=== PATIENT | female | born 1940 | race Caucasian/White ===

== ENCOUNTER → 2016-10-07 | Outpatient (CLI) | payer OTHER | LOC: FIMAGING 12:35 | PROVIDERS: ATTEND Nurse Practitioner Family | DX: M43.16 Spondylolisthesis, lumbar region (principal); M12.88 Other specific arthropathies, not elsewhere classified, other specified site; Z98.1 Arthrodesis status ==

== ENCOUNTER 2018-05-03 10:39 | Emergency (ER) | payer OTHER ==
[2018-05-03 10:50] VITALS: BP 142/105
--- NOTE | 2018-05-03 11:05 | EDPHY ---
H & P Stated Complaint: Fall either getting into or out of bed this AM. Lt foot pain Time Seen by Provider: 05/03/18 10:44 HPI/ROS: Chief Complaint: Foot pain status post fall HPI: 79-year-old woman was either getting in or out of bed this morning using a step stool when she slipped and fell. heard a Bang. He found the patient on the floor. She is complaining of left foot pain. She denies hitting her head. No loss of consciousness. No headache. She states she slipped on the stool. She was unable to weightbear secondary to pain. No hip pain. No chest pain. No abdominal pain. No extremity injury. ROS: 10 systems were reviewed and were negative except those elements noted in the HPI. PMH: Alzheimer's dementia Social History: No smoking, no alcohol, no recreational drug use Family History: non-contributory Physical Exam: Gen: Awake, Alert, No Distress HEENT: Nose: no rhinorrhea Eyes: PERRLA, EOMI Mouth: Moist mucosa Neck: Supple, no JVD Chest: nontender, lungs clear to auscultation Heart: S1, S2 normal, no murmur Abd: Soft, non-tender, no guarding Back: no CVA tenderness, no midline tenderness Ext: no edema, left hip is nontender, full range of motion without pain, left knee is nontender, full range of motion of pain, left ankle is nontender, full range of motion without pain, she has some left midfoot tenderness without deformity or edema. Sensations intact. Normal capillary refill. 2+ dorsalis pedis pulses. Skin: no rash Neuro: CN II-XII intact, Sensation grossly intact, Strength 5/5 in bilateral upper and lower extremities - Personal History Current Tetanus/Diphtheria Vaccine: Unsure Current Tetanus Diphtheria and Acellular Pertussis (TDAP): Unsure - Medical/Surgical History Other PMH: Alheimers - Social History Smoking Status: Never smoked Constitutional: Initial Vital Signs Temperature (C) 36.4 C 05/03/18 10:46 Heart Rate 72 05/03/18 10:46 Respiratory Rate 16 05/03/18 10:46 Blood Pressure 142/105 H 05/03/18 10:46 O2 Sat (%) 96 05/03/18 10:46 O2 Delivery Mode Room Air Allergies/Adverse Reactions: Penicillins Allergy (Verified 05/03/18 10:54) Sulfa (Sulfonamide Antibiotics) Allergy (Verified 05/03/18 10:54) Medical Decision Making - Diagnostics Imaging Results: Imaging Impressions Foot X-Ray 05/03/18 10:53 Impression: Oblique mildly displaced 5th metatarsal fracture. ED Course/Re-evaluation: Foot fracture noted on x-ray. Patient has been placed in an orthopedic boot. I have discussed with Dr. Green, orthopedist. He will be able to see the patient in his office this afternoon. We go straight there and does not need appointment. Departure - Departure Disposition: Home, Routine, Self-Care Clinical Impression: Foot fracture Condition: Good Instructions: Foot Fracture in Adults (ED) Additional Instructions: Go directly to Dr Green's office. Referrals: Jus Green MD [Medical Doctor] - As per Instructions
== END 2018-05-03 13:06 | disposition home or self-care (01) ==
LOC: MERGE 10:39 → EDBD 10:39
DX: S92.352A Displaced fracture of fifth metatarsal bone, left foot, initial encounter for closed fracture (principal); W06.XXXA Fall from bed, initial encounter; Y92.013 Bedroom of single-family (private) house as the place of occurrence of the external cause; Y99.8 Other external cause status; G30.9 Alzheimer's disease, unspecified; F02.80 Dementia in other diseases classified elsewhere, unspecified severity, without behavioral disturbance, psychotic disturbance, mood disturbance, and anxiety

== ENCOUNTER 2018-08-18 14:55 | Emergency (ER) | payer OTHER ==
--- NOTE | 2018-08-18 15:27 | EDPHY ---
H & P Time Seen by Provider: 08/18/18 15:17 HPI/ROS: CHIEF COMPLAINT: Confusion HISTORY OF PRESENT ILLNESS: Patient is a 72-year-old female who was wandering on the street and knocked on a stranger's door. She seemed confused and so the stranger called 911. The patient denies having any complaints of pain or injury or illness. She cannot tell us her name or what year or what day it is. She does not appear to have any focal weakness. She is afebrile and has stable vital signs. Police have contacted the 2 nursing homes in the area where she was found and neither of them know of a missing patient. She was carrying a book with her that is a family photo alum. Police are trying to contact the family that it belongs to. She told the police that her name was Evelyn. She told me that her name was Manisha. Severity: Minimal Modifying factors: None REVIEW OF SYSTEMS: Unable to obtain secondary to condition EXAM: GENERAL: Well-appearing, well-nourished and in no acute distress. HEAD: Atraumatic, normocephalic. EYES: Pupils equal round and reactive to light, extraocular movements intact, sclera anicteric, conjunctiva are normal. ENT: TMs normal, nares patent, oropharynx clear without exudates. Moist mucous membranes. NECK: Normal range of motion, supple without lymphadenopathy or JVD. Brownish discoloration/dirt to posterior neck LUNGS: Breath sounds clear to auscultation bilaterally and equal. No wheezes rales or rhonchi. HEART: Regular rate and rhythm without murmurs, rubs or gallops. ABDOMEN: Soft, nontender, normoactive bowel sounds. No guarding, no rebound. No masses appreciated. BACK: No CVA tenderness, no spinal tenderness, step-offs or deformities EXTREMITIES: Normal range of motion, no pitting or edema. No clubbing or cyanosis. NEUROLOGICAL: Awake and alert and pleasant but disoriented completely to person time or place. Cranial nerves II through XII grossly intact. Normal speech, normal gait. 5/5 strength, normal movement in all extremities, normal sensation, normal reflexes, normal cerebellar reflex PSYCH: Normal mood, normal affect. SKIN: Warm, dry, normal turgor, no visible rashes or lesions. Source: Police, EMS Exam Limitations: No limitations - Medical/Surgical History Other PMH: Unable to obtain - Social History Additional Social History: Unable to obtain secondary to condition Constitutional: Initial Vital Signs Temperature (C) 36.5 C 08/18/18 15:48 Heart Rate 93 08/18/18 15:48 Respiratory Rate 16 08/18/18 15:48 Blood Pressure 131/84 H 08/18/18 15:48 O2 Sat (%) 98 08/18/18 15:48 O2 Delivery Mode Room Air Medical Decision Making ED Course/Re-evaluation: Patient appears slightly dehydrated under chemistries. Will hydrate with oral fluid. She is not nauseous or vomiting and is tolerating p.o. Fluids. She is being interviewed by case filler. She continues to deny pain illness or injury. 4:15 p.m. The police were able to contact the patient's who is on his way to come get her. She does have a history of dementia and is likely at her baseline. They have caretakers who stay at home with her however today she somehow escaped. 4:40 p.m. the patient's is here. He is ready to take her home. He states that this is her baseline. Differential Diagnosis: Partial list of the Differential diagnosis considered include but were not limited to; dementia, infection and although unlikely based on the history and physical exam, I also considered altered mental status, trauma, substance abuse. - Data Points Laboratory Results: Laboratory Results 08/18/18 15:00 08/18/18 15:00 Departure - Departure Disposition: Home, Routine, Self-Care Clinical Impression: Dementia Qualifiers: Dementia type: unspecified type Dementia behavioral disturbance: without behavioral disturbance Qualified Code(s): F03.90 - Unspecified dementia without behavioral disturbance Condition: Good Instructions: Dementia (ED) Referrals: Patient,NotPresent [Unknown] - As per Instructions Dafne Melendez MD [Medical Doctor] - 2-3 days, if not improved
[2018-08-18 15:47] LABS: PLATELET COUNT 361 10^3/uL (150-400)
[2018-08-18 16:57] VITALS: BP 129/83
--- NOTE | 2018-08-18 17:19 | ASMTCMCOM ---
CM Note CM Note Notes: Patient presented to the ED with [place] Police after patient was found wandering around a neighborhood near [address] [place] [address]. Patient evidently knocked on a residents door and reported that she was lost. She was unable to provide her name, an address, or any relevent information. Patient did not have any indentification on her person but was carrying a "Snapchat" photo album with photos of what appeared to be children and grandchildren. Keenan LOVETT was able to send a Facebook message to an individual in the photo book and [employer] subsequently received a call back from this individual (Scott) who is a nephew of the patient [phone]. Scott contacted patient's Felix with whom Officer Edmond spoke with and confirmed that Felix was in route to the ED. My interaction with patient confirmed her inability to identify herself, her address, or the names of any family. When looking through her photo album patient is unable to identify anyone by name and simply states they are "the people I love". Upon Felix's arrival patient lights up stating "I'm so glad you could come." She is eager to be reunited with Felix and "go home". Felix explains that patient has HH services and companionship/respite care at home 3-4 days per week with [facility]. Felix states that this is the first time that patient has wandered from home but he confirms that they do have resources to increase services as needed. Felix states that he works from home a few days per week and he or someone is always home with patient. Patient is stable to discharge with . CM available for further needs Date Signed: 08/18/2018 05:19 PM Electronically Signed By:Ina Stack RN
== END 2018-08-18 17:00 | disposition home or self-care (01) ==
LOC: MERGE 14:55 → EDBD 14:55
DX: F03.90 Unspecified dementia, unspecified severity, without behavioral disturbance, psychotic disturbance, mood disturbance, and anxiety (principal); R41.0 Disorientation, unspecified

== ENCOUNTER 2018-11-08 11:28 | Inpatient (IN) | payer OTHER ==
--- NOTE | 2018-11-08 11:51 | EDPHY ---
H & P Stated Complaint: syncope Time Seen by Provider: 11/08/18 11:32 HPI/ROS: CHIEF COMPLAINT: Syncope HISTORY OF PRESENT ILLNESS: 77-year-old female history Alzheimer's dementia, baseline is A & O x1, arrives via ambulance with her home care provider. The care provider reports that the patient had not been acting her normal self recently. Today when the home health care nurse was at the patient's home patient appeared to lose consciousness and was caught by the home care provider lowered the patient the floor. Few seconds of loss of consciousness with no seizure activity. No incontinence. The home health nurse notes copious amount of blood in the toilet and history of GI bleed as well. Patient has previously seen Dr. Shaka MAN with last colonoscopy approximately 1.5 years ago. PRIMARY CARE PROVIDER: REVIEW OF SYSTEMS: 10 systems reviewed and negative with the exception of the elements mentioned in the history of present illness PAST MEDICAL & SURGICAL HISTORY: Alzheimer's dementia SOCIAL HISTORY: Lives with her PHYSICAL EXAM (Prior to examination, patient consented to physical exam, hands were washed and my usual and customary physical exam procedures followed) 1) GENERAL: Well-developed, well-nourished, alert and oriented. Appears to be in no acute distress. 2) HEAD: Normocephalic, atraumatic 3) HEENT: Pupils equal, round, reactive to light bilaterally. Sclera anicteric. Nasopharynx, oropharynx, clear, no lesions. Pale mucous membranes. Moist mucous membranes. Ears bilaterally with normal tympanic membranes. 4) NECK: Full range of motion, no meningeal signs. 5) LUNGS: Clear auscultation bilaterally, no wheezes, no rhonchi, no retractions. 6) HEART: Regular rate and rhythm, no murmur, no heave, no gallop. 7) ABDOMEN: No guarding, no rebound, no focal tenderness, negative McBurney's, negative Foley's, negative Rovsing's, negative peritoneal sign, 8) MUSCULOSKELETAL: Moving all extremities, no focal areas of tenderness, no obvious trauma. No peripheral edema or discoloration. 9) BACK: No CVA tenderness, no midline vertebral tenderness, no fluctuance, no step-off, no obvious trauma, no visual or palpable abnormality. 10) SKIN: Pallorous 11) rectal examination (use with nurse Adan at bedside) :dilip blood on finger. DIFFERENTIAL DIAGNOSIS: Syncope including but not limited to vasovagal syncope , arrhythmia, dehydration, and blood loss. - Personal History Current Tetanus Diphtheria and Acellular Pertussis (TDAP): Unsure Tetanus Vaccine Date: unsure of date - Medical/Surgical History Hx Asthma: No Hx Chronic Respiratory Disease: No Hx Diabetes: No Hx Cardiac Disease: No Hx Renal Disease: No Hx Cirrhosis: No Hx Alcoholism: No Hx HIV/AIDS: No Hx Splenectomy or Spleen Trauma: No Other PMH: Unable to obtain - Social History Smoking Status: Unknown if ever smoked Constitutional: Initial Vital Signs Temperature (C) 36.5 C 11/08/18 11:39 Heart Rate 79 11/08/18 11:39 Respiratory Rate 16 11/08/18 11:39 Blood Pressure 150/81 H 11/08/18 11:39 O2 Sat (%) 96 11/08/18 11:39 O2 Delivery Mode Room Air Allergies/Adverse Reactions: dexamethasone [From Decadron] Allergy (Severe, Verified 05/10/12 13:43) MANIC EPISODE dexamethasone sod phosphate [From Decadron] Allergy (Severe, Verified 05/10/12 13:43) MANIC EPISODE Sulfa (Sulfonamide Antibiotics) Allergy (Severe, Verified 05/10/12 13:44) FACIAL SWELLING-TONGUE SWELLING diclofenac sodium [From Pennsaid] Allergy (Intermediate, Verified 05/10/12 13:43 ) Hives Penicillins Allergy (Intermediate, Verified 05/10/12 13:44) HIVES-FACIALSWELLING cephalexin Allergy (Unknown, Verified 05/10/12 13:46) STEROIDS Allergy (Uncoded 05/10/12 13:45) MANIC EPISODE Home Medications: Medication Instructions Recorded QUEtiapine FUMARATE [Seroquel 300 mg PO HS 02/25/12 300mg (*)] Bupropion HCl [Wellbutrin Xl] 300 mg PO DAILY 01/14/15 Donepezil HCl 10 mg PO DAILY 11/09/15 Estazolam 2 mg PO HS 11/09/15 Glucosam/Chondr/Collagn/Hyalur 1 cap PO TID 11/09/15 [Glucosamine & Chondroitin Cap] Herbals/Supplements -Info Only 1 ea PO DAILY 11/09/15 Memantine HCl [Namenda 5 mg (*)] 7.5 mg PO HS 04/16/16 Ranitidine HCl [Zantac] 150 mg PO DAILY 04/16/16 Acetaminophen [Tylenol ES 500 mg 1,000 mg PO Q8 #0 tab 04/17/16 (*)] Ibuprofen [Motrin (*)] 400 mg PO Q4 #0 tab 04/17/16 buPROPion 11/08/18 Medical Decision Making - Diagnostics Imaging Results: Imaging Impressions Chest X-Ray 11/08/18 11:43 Impression: 1. No active cardiopulmonary disease seen. Head CT 11/08/18 11:43 Impression: Nothing acute identified. Results called to Dr. Chandler Nava at 12:56 PM. General information for patients regarding this examination can be found at [email or web address] If you have questions or comments about this report, please contact me at (hospital) or [phone] (cell). ED Course/Re-evaluation: 12:45 p.m.: Consultation with hospitalist, admit to Dr. Allen. Will consult with GI. Patient has previously seen Dr. Matt . Will type and cross 2 units. I spoke with the at length as he has medical power of drafter civil engineering and he concurs with blood transfusion, colonoscopy in need for hospitalization. 12:25 p.m.: Consultation with Gastroenterology on-call Dr. Scott Frias. Who will consult for gastroenterology. - Data Points Laboratory Results: Laboratory Results 11/08/18 11:40 11/08/18 11:40 11/08/18 11/08/18 11/08/18 12:15 11:48 11:43 WBC RBC Hgb POC Hgb 9.2 gm/dL L gm/dL (12.6-16.3) Hct POC Hct 27 % L % (38-47) MCV MCH MCHC RDW Plt Count MPV Neut % (Auto) Lymph % (Auto) [place] % (Auto) Eos % (Auto) Baso % (Auto) Nucleat RBC Rel Count Absolute Neuts (auto) Absolute Lymphs (auto) Absolute Monos (auto) Absolute Eos (auto) Absolute Basos (auto) Absolute Nucleated RBC Immature Gran % Immature Gran # POC Sodium 145 mEq/L mEq/L (135-145) Sodium POC Potassium 3.4 mEq/L mEq/L (3.3-5.0) Potassium POC Chloride 107 mEq/L mEq/L (97-110) Chloride Carbon Dioxide POC Total CO2 21 mEq/L L mEq/L (22-31) Anion Gap POC BUN 11 mg/dL mg/dL (7-23) BUN Creatinine POC Creatinine 1.0 mg/dL mg/dL (0.6-1.0) Estimated GFR Glucose POC Glucose 93 mg/dL mg/dL (70-100) Calcium POC Troponin I 0.00 ng/mL ng/mL (0.00-0.08) Troponin I Urine Color PALE YELLOW Urine Appearance CLEAR Urine pH 6.0 (5.0-7.5) Ur Specific [place] 1.006 (1.002-1.030) Urine Protein NEGATIVE (NEGATIVE) Urine Ketones NEGATIVE (NEGATIVE) Urine Blood NEGATIVE (NEGATIVE) Urine Nitrate NEGATIVE (NEGATIVE) Urine Bilirubin NEGATIVE (NEGATIVE) Urine Urobilinogen NEGATIVE EU EU (0.2-1.0) Ur Leukocyte Esterase NEGATIVE (NEGATIVE) Urine RBC NONE SEEN /hpf /hpf (0-3) Urine WBC 1-3 /hpf /hpf (0-3) Ur Epithelial Cells TRACE /lpf /lpf (NONE-1+) Urine Mucus TRACE /lpf /lpf (NONE-1+) Urine Glucose NEGATIVE (NEGATIVE) 11/08/18 11/08/18 11:40 11:40 WBC 5.97 10^3/uL 10^3/uL (3.80-9.50) RBC 3.36 10^6/uL L 10^6/uL (4.18-5.33) Hgb 8.1 g/dL L g/dL (12.6-16.3) POC Hgb Hct 26.9 % L % (38.0-47.0) POC Hct MCV 80.1 fL L fL (81.5-99.8) MCH 24.1 pg L pg (27.9-34.1) MCHC 30.1 g/dL L g/dL (32.4-36.7) RDW 14.4 % % (11.5-15.2) Plt Count 291 10^3/uL 10^3/uL (150-400) MPV 9.8 fL fL (8.7-11.7) Neut % (Auto) 71.4 % % (39.3-74.2) Lymph % (Auto) 16.4 % % (15.0-45.0) Hamb[place] % (Auto) 7.9 % % (4.5-13.0) Eos % (Auto) 2.3 % % (0.6-7.6) Baso % (Auto) 1.8 % H % (0.3-1.7) Nucleat RBC Rel Count 0.0 % % (0.0-0.2) Absolute Neuts (auto) 4.26 10^3/uL 10^3/uL (1.70-6.50) Absolute Lymphs (auto) 0.98 10^3/uL L 10^3/uL (1.00-3.00) Absolute Monos (auto) 0.47 10^3/uL 10^3/uL (0.30-0.80) Absolute Eos (auto) 0.14 10^3/uL 10^3/uL (0.03-0.40) Absolute Basos (auto) 0.11 10^3/uL H 10^3/uL (0.02-0.10) Absolute Nucleated RBC 0.00 10^3/uL 10^3/uL (0-0.01) Immature Gran % 0.2 % % (0.0-1.1) Immature Gran # 0.01 10^3/uL 10^3/uL (0.00-0.10) POC Sodium Sodium 139 mEq/L mEq/L (135-145) POC Potassium Potassium 3.6 mEq/L mEq/L (3.5-5.2) POC Chloride Chloride 108 mEq/L mEq/L (97-110) Carbon Dioxide 24 mEq/l mEq/l (22-31) POC Total CO2 Anion Gap 7 mEq/L mEq/L (6-14) POC BUN BUN 12 mg/dL mg/dL (7-23) Creatinine 0.9 mg/dL mg/dL (0.6-1.0) POC Creatinine Estimated GFR > 60 Glucose 89 mg/dL mg/dL (70-100) POC Glucose Calcium 8.4 mg/dL L mg/dL (8.5-10.4) POC Troponin I Troponin I < 0.012 ng/mL ng/mL (0.000-0.034) Urine Color Urine Appearance Urine pH Ur Specific [place] Urine Protein Urine Ketones Urine Blood Urine Nitrate Urine Bilirubin Urine Urobilinogen Ur Leukocyte Esterase Urine RBC Urine WBC Ur Epithelial Cells Urine Mucus Urine Glucose Point of Care Test Results: Chemistry 11/08/18 11/08/18 11:48 11:43 POC Sodium 145 mEq/L mEq/L (135-145) POC Potassium 3.4 mEq/L mEq/L (3.3-5.0) POC Chloride 107 mEq/L mEq/L (97-110) POC Total CO2 21 mEq/L L mEq/L (22-31) POC BUN 11 mg/dL mg/dL (7-23) POC Creatinine 1.0 mg/dL mg/dL (0.6-1.0) POC Glucose 93 mg/dL mg/dL (70-100) POC Troponin I 0.00 ng/mL ng/mL (0.00-0.08) ISTAT H&H 11/08/18 11:43 POC Hgb 9.2 gm/dL L gm/dL (12.6-16.3) POC Hct 27 % L % (38-47) Departure - Departure Disposition: [facility] ([place], [place]) Inpatient Acute Clinical Impression: Syncope Qualifiers: Syncope type: unspecified Qualified Code(s): R55 - Syncope and collapse GI bleed Qualifiers: GI bleed type/associated pathology: unspecified gastrointestinal hemorrhage type Qualified Code(s): K92.2 - Gastrointestinal hemorrhage, unspecified Condition: Fair
[2018-11-08 12:09] LABS: PLATELET COUNT 291 10^3/uL (150-400)
[2018-11-08] MEDS ORDERED: ONDANSETRON 4 MG/2 ML VIAL IVP PRN (13:38)
[2018-11-08] MEDS ORDERED: ACETAMINOPHEN 325 MG TAB PO PRN (13:38)
[2018-11-08] MEDS ORDERED: ONDANSETRON DISINTEGRATING 4 MG TAB PO PRN (13:38)
[2018-11-08] MEDS ORDERED: PANTOPRAZOLE SODIUM 40 MG VIAL IVP SCH (13:45)
[2018-11-08] MEDS ORDERED: NS 1,000 ML IV SCH (13:45)
--- NOTE | 2018-11-08 13:53 | PDGENHP ---
<Corrine Griffin - Last Filed: 11/08/18 14:22> History and Physical - Chief Complaint Syncope w/suspected lower GI bleed - History of Present Illness This is a 77 y/o female w/Alzheimer's baseline A&OX1 presenting via EMS after a syncopal episode today witnessed by her [facility] nurse, Maranda. This is my first encounter w/the pt who was seen in the ED w/her at bedside as well as my first time reviewing her past medical history. Maranda was not at bedside. Per her , the pt was standing in the kitchen while Maranda was cleaning up when Maranda noticed the pt syncope and had enough time to catch her and guide her to the ground. She did not hit her head, but did LOC for a few seconds w/no seizure activity or urinary incontinence. Maranda has also noticed copious amounts of bright red blood in the toilet for a few weeks now after the pt has a bowel movement. The , Felix, reports he was down in the basement trying to file taxes when he was summoned upstairs to find his pale and "coming to." Per Felix, her last colonoscopy was 5 years ago w/no abnormalities and a year ago, Dr. Matt and family discussed whether another colonoscopy was necessary and ultimately decided it wasn't. She has had GI bleeds intermittently for the last year, Felix believes these are her hemorrhoids however it is not sure whether these are internal or external. She does not utilize NSAIDs or ASA frequently, only once in awhile will she use ibuprofen for minor pains. ED JAYSHREE Ronquillo performed a rectal exam and found dilip blood on finger. H/H is 8.1/26.9 today, down from 11.7/37.5 in July 2018. She appears pale but no signs of distress. She denies CP, palpitations, SOB, lightheadedness, body pain, nausea, vomiting. Head CT w/o contrast unremarkable. CXR unremarkable. Even though she has had intermittent bleeding while having BMs, this is the first time she has syncope. She is being admitted for further work-up, treatment and monitoring. History Information - Allergies/Home Medication List Allergies/Adverse Reactions: dexamethasone [From Decadron] Allergy (Severe, Verified 05/10/12 13:43) MANIC EPISODE dexamethasone sod phosphate [From Decadron] Allergy (Severe, Verified 05/10/12 13:43) MANIC EPISODE Sulfa (Sulfonamide Antibiotics) Allergy (Severe, Verified 05/10/12 13:44) FACIAL SWELLING-TONGUE SWELLING diclofenac sodium [From Pennsaid] Allergy (Intermediate, Verified 05/10/12 13:43 ) Hives Penicillins Allergy (Intermediate, Verified 05/10/12 13:44) HIVES-FACIALSWELLING cephalexin Allergy (Unknown, Verified 05/10/12 13:46) STEROIDS Allergy (Uncoded 05/10/12 13:45) MANIC EPISODE Home Medications: QUEtiapine FUMARATE [Seroquel 300mg (*)] 300 mg PO HS 02/25/12 [Last Taken 11/07] Donepezil HCl 20 mg PO DAILY 11/09/15 [Last Taken 11/08/18] Estazolam 2 mg PO HS 11/09/15 [Last Taken 11/07/18] Herbals/Supplements -Info Only 1 ea PO DAILY 11/09/15 [Last Taken 11/09/15 09:00 ] Ranitidine HCl [Zantac] 150 mg PO DAILY 04/16/16 [Last Taken 11/08/18] Cholecalciferol Vit D3 [Vitamin D3 (*)] 1,000 units PO DAILY 11/08/18 [Last Taken 11/08/18] Docusate Sodium [Colace 100 MG (*)] 100 mg PO BID@11/08/18 [Last Taken 12:00] Glucosamine/Chondroitin [Glucosamine/Chondroitin (*)] 1 each PO TIDMEAL [Last Taken 11/08/18 09:00] Memantine HCl [Namenda 10 mg] 20 mg PO HS 11/08/18 [Last Taken 11/07/18] Vayacog 1 cap PO BID@11/08/18 [Last Taken 11/07/18 18:00] buPROPion XL [Wellbutrin Xl] 300 mg PO DAILY 11/08/18 [Last Taken 11/08/18] I have personally reviewed and updated: family history, medical history, social history, surgical history - Past Medical History psychiatric history (Depression, anxiety, bipolar, PTSD) Additional medical history: Alzheimer's, osteopenia, spondylolisthesis - Surgical History Reports: appendectomy, spinal surgery (L5-S1 fusion) Additional surgical history: Stapedectomy, tubal ligation - Family History Additional family history: Mother w/Parkinson's at age 90 y/o; father age 97 y/o - Social History Smoking Status: Never smoked Alcohol Use: None Drug Use: None Additional social history: . Lives w/, Felix. Has C RN, Maranda, come to house every Thursday and Thursday. Review of Systems Review of Systems: ROS: 10pt was reviewed & negative except for what was stated in HPI & below Physical Exam Physical Exam: Lab data and imaging were reviewed. H/H: 8.1/26.9 compared to 11.7/37.5 in [facility] 2018 BUN/Cr: 12/0.9 Glucose: 89 UA: unremarkable EKG: Pending CXR and Head CT w/o contrast: see HPI Temp Pulse Resp BP Pulse Ox 36.5 C 79 16 150/81 H 96 11/08/18 11:39 11/08/18 11:39 11/08/18 11:39 11/08/18 11:39 11/08/18 11:39 Constitutional: no apparent distress, appears nourished, not in pain, other ( Pale appearance) Eyes: PERRL, anicteric sclera, EOMI Ears, Nose, Mouth, Throat: moist mucous membranes, hearing normal, ears appear normal, no oral mucosal ulcers Cardiovascular: regular rate and rhythym, no murmur, rub, or gallop, No edema Peripheral Pulses: 2+: dorsalis-pedis (R), dorsalis-pedis (L) Respiratory: no respiratory distress, no rales or rhonchi, clear to auscultation Gastrointestinal: normoactive bowel sounds, no palpable masses, tenderness Genitourinary: no bladder fullness, no bladder tenderness Skin: warm, normal color, no rashes or abrasions, no fluctuance, no induration, No mottled Musculoskeletal: full muscle strength, no muscle tenderness, normal joint ROM, no joint effusions Neurologic: sensation intact bilaterally, CN II-XII Intact, other (A&Ox1) Psychiatric: interacting appropriately, not anxious, not encephalopathic, thought process linear Lymph, Heme, Immunologic: no cervical LAD, no supraclavicular LAD Lab Data & Imaging Review 11/08/18 11:40 11/08/18 11:40 WBC 5.97 10^3/uL (3.80-9.50) 11/08/18 11:40 RBC 3.36 10^6/uL (4.18-5.33) L 11/08/18 11:40 Hgb 8.1 g/dL (12.6-16.3) L 11/08/18 11:40 POC Hgb 9.2 gm/dL (12.6-16.3) L 11/08/18 11:43 Hct 26.9 % (38.0-47.0) L 11/08/18 11:40 POC Hct 27 % (38-47) L 11/08/18 11:43 MCV 80.1 fL (81.5-99.8) L 11/08/18 11:40 MCH 24.1 pg (27.9-34.1) L 11/08/18 11:40 MCHC 30.1 g/dL (32.4-36.7) L 11/08/18 11:40 RDW 14.4 % (11.5-15.2) 11/08/18 11:40 Plt Count 291 10^3/uL (150-400) 11/08/18 11:40 MPV 9.8 fL (8.7-11.7) 11/08/18 11:40 Neut % (Auto) 71.4 % (39.3-74.2) 11/08/18 11:40 Lymph % (Auto) 16.4 % (15.0-45.0) 11/08/18 11:40 [place] % (Auto) 7.9 % (4.5-13.0) 11/08/18 11:40 Eos % (Auto) 2.3 % (0.6-7.6) 11/08/18 11:40 Baso % (Auto) 1.8 % (0.3-1.7) H 11/08/18 11:40 Nucleat RBC Rel Count 0.0 % (0.0-0.2) 11/08/18 11:40 Absolute Neuts (auto) 4.26 10^3/uL (1.70-6.50) 11/08/18 11:40 Absolute Lymphs (auto) 0.98 10^3/uL (1.00-3.00) L 11/08/18 11:40 Absolute Monos (auto) 0.47 10^3/uL (0.30-0.80) 11/08/18 11:40 Absolute Eos (auto) 0.14 10^3/uL (0.03-0.40) 11/08/18 11:40 Absolute Basos (auto) 0.11 10^3/uL (0.02-0.10) H 11/08/18 11:40 Absolute Nucleated RBC 0.00 10^3/uL (0-0.01) 11/08/18 11:40 Immature Gran % 0.2 % (0.0-1.1) 11/08/18 11:40 Immature Gran # 0.01 10^3/uL (0.00-0.10) 11/08/18 11:40 POC Sodium 145 mEq/L (135-145) 11/08/18 11:43 Sodium 139 mEq/L (135-145) 11/08/18 11:40 POC Potassium 3.4 mEq/L (3.3-5.0) 11/08/18 11:43 Potassium 3.6 mEq/L (3.5-5.2) 11/08/18 11:40 POC Chloride 107 mEq/L (97-110) 11/08/18 11:43 Chloride 108 mEq/L (97-110) 11/08/18 11:40 Carbon Dioxide 24 mEq/l (22-31) 11/08/18 11:40 POC Total CO2 21 mEq/L (22-31) L 11/08/18 11:43 Anion Gap 7 mEq/L (6-14) 11/08/18 11:40 POC BUN 11 mg/dL (7-23) 11/08/18 11:43 BUN 12 mg/dL (7-23) 11/08/18 11:40 Creatinine 0.9 mg/dL (0.6-1.0) 11/08/18 11:40 POC Creatinine 1.0 mg/dL (0.6-1.0) 11/08/18 11:43 Estimated GFR > 60 11/08/18 11:40 Glucose 89 mg/dL (70-100) 11/08/18 11:40 POC Glucose 93 mg/dL (70-100) 11/08/18 11:43 Calcium 8.4 mg/dL (8.5-10.4) L 11/08/18 11:40 POC Troponin I 0.00 ng/mL (0.00-0.08) 11/08/18 11:48 Troponin I < 0.012 ng/mL (0.000-0.034) 11/08/18 11:40 Urine Color PALE YELLOW 11/08/18 12:15 Urine Appearance CLEAR 11/08/18 12:15 Urine pH 6.0 (5.0-7.5) 11/08/18 12:15 Ur Specific [place] 1.006 (1.002-1.030) 11/08/18 12:15 Urine Protein NEGATIVE (NEGATIVE) 11/08/18 12:15 Urine Ketones NEGATIVE (NEGATIVE) 11/08/18 12:15 Urine Blood NEGATIVE (NEGATIVE) 11/08/18 12:15 Urine Nitrate NEGATIVE (NEGATIVE) 11/08/18 12:15 Urine Bilirubin NEGATIVE (NEGATIVE) 11/08/18 12:15 Urine Urobilinogen NEGATIVE EU (0.2-1.0) 11/08/18 12:15 Ur Leukocyte Esterase NEGATIVE (NEGATIVE) 11/08/18 12:15 Urine RBC NONE SEEN /hpf (0-3) 11/08/18 12:15 Urine WBC 1-3 /hpf (0-3) 11/08/18 12:15 Ur Epithelial Cells TRACE /lpf (NONE-1+) 11/08/18 12:15 Urine Mucus TRACE /lpf (NONE-1+) 11/08/18 12:15 Urine Glucose NEGATIVE (NEGATIVE) 11/08/18 12:15 Patient ABO/Rh A POSITIVE 11/08/18 12:55 Antibody Screen NEGATIVE 11/08/18 12:55 Crossmatch IS Only See Detail 11/08/18 12:55 Assessment & Plan Plan: This is a 77 y/o female w/hx of intermittent GI bleeding presenting after a syncopal episode today w/suspicion of lower GI bleeding d/t witnessed weeks worth of copious bright red blood found in the toilet after pt performs a bowel movement. Her reports issues w/hemorrhoids for the last year. Last colonoscopy was 5 years ago and apparently unremarkable. Her vital signs are: BP 150/81, HR 79, Resp 16, Temp 36.5, 96%RA. #Syncopal episode d/t suspected hypovolemia by chronic blood loss -Head CT w/o contrast unremarkable. -Asymptomatic currently -Gentle IVF x 1 bag #Suspected lower GI bleed: see above -Rectal exam + for dilip blood -H/H 8.1/26.9, down from 11.7/37.5 from July 2018; will receive 2 units of RBCs today -Cycle H/H Q6H x 3 -Will check creatinine in AM -Cont tele monitoring -Ensure pt has 2 PIV access -GI consulted. I spoke to Dr. Frias who will evaluate the pt later today for possible scope. Approved clear liquid diet for now until assessed. -Protonix BID IVP -Avoid NSAIDs/ASA #Alzheimer -Baseline cognitive function is A&Ox1 -Cont home medications of donepezil and namenda -PT and OT to evaluate and treat # Psychiatric disorders (depression, anxiety, PTSD, bipolar) -Cont home medications of wellbutrin, estazolam and seroquel Diet: Clears for now until GI has consulted VTE ppx: SCDs Code: DNR, discussed w/pt and Felix ( who is MPOA) Dispo: Admit to obs <Pollo Allen - Last Filed: 11/08/18 21:31> History and Physical - History of Present Illness Review of Systems Review of Systems: Physical Exam Physical Exam: Temp Pulse Resp BP Pulse Ox 36.2 C 74 16 149/95 H 94 11/08/18 19:22 11/08/18 19:22 11/08/18 19:22 11/08/18 19:22 11/08/18 19:22 Lab Data & Imaging Review 11/08/18 20:09 11/08/18 11:40 WBC 5.97 10^3/uL (3.80-9.50) 11/08/18 11:40 RBC 3.36 10^6/uL (4.18-5.33) L 11/08/18 11:40 Hgb 11.1 g/dL (12.6-16.3) L 11/08/18 20:09 POC Hgb 9.2 gm/dL (12.6-16.3) L 11/08/18 11:43 Hct 35.0 % (38.0-47.0) L 11/08/18 20:09 POC Hct 27 % (38-47) L 11/08/18 11:43 MCV 80.1 fL (81.5-99.8) L 11/08/18 11:40 MCH 24.1 pg (27.9-34.1) L 11/08/18 11:40 MCHC 30.1 g/dL (32.4-36.7) L 11/08/18 11:40 RDW 14.4 % (11.5-15.2) 11/08/18 11:40 Plt Count 291 10^3/uL (150-400) 11/08/18 11:40 MPV 9.8 fL (8.7-11.7) 11/08/18 11:40 Neut % (Auto) 71.4 % (39.3-74.2) 11/08/18 11:40 Lymph % (Auto) 16.4 % (15.0-45.0) 11/08/18 11:40 [place] % (Auto) 7.9 % (4.5-13.0) 11/08/18 11:40 Eos % (Auto) 2.3 % (0.6-7.6) 11/08/18 11:40 Baso % (Auto) 1.8 % (0.3-1.7) H 11/08/18 11:40 Nucleat RBC Rel Count 0.0 % (0.0-0.2) 11/08/18 11:40 Absolute Neuts (auto) 4.26 10^3/uL (1.70-6.50) 11/08/18 11:40 Absolute Lymphs (auto) 0.98 10^3/uL (1.00-3.00) L 11/08/18 11:40 Absolute Monos (auto) 0.47 10^3/uL (0.30-0.80) 11/08/18 11:40 Absolute Eos (auto) 0.14 10^3/uL (0.03-0.40) 11/08/18 11:40 Absolute Basos (auto) 0.11 10^3/uL (0.02-0.10) H 11/08/18 11:40 Absolute Nucleated RBC 0.00 10^3/uL (0-0.01) 11/08/18 11:40 Immature Gran % 0.2 % (0.0-1.1) 11/08/18 11:40 Immature Gran # 0.01 10^3/uL (0.00-0.10) 11/08/18 11:40 POC Sodium 145 mEq/L (135-145) 11/08/18 11:43 Sodium 139 mEq/L (135-145) 11/08/18 11:40 POC Potassium 3.4 mEq/L (3.3-5.0) 11/08/18 11:43 Potassium 3.6 mEq/L (3.5-5.2) 11/08/18 11:40 POC Chloride 107 mEq/L (97-110) 11/08/18 11:43 Chloride 108 mEq/L (97-110) 11/08/18 11:40 Carbon Dioxide 24 mEq/l (22-31) 11/08/18 11:40 POC Total CO2 21 mEq/L (22-31) L 11/08/18 11:43 Anion Gap 7 mEq/L (6-14) 11/08/18 11:40 POC BUN 11 mg/dL (7-23) 11/08/18 11:43 BUN 12 mg/dL (7-23) 11/08/18 11:40 Creatinine 0.9 mg/dL (0.6-1.0) 11/08/18 11:40 POC Creatinine 1.0 mg/dL (0.6-1.0) 11/08/18 11:43 Estimated GFR > 60 11/08/18 11:40 Glucose 89 mg/dL (70-100) 11/08/18 11:40 POC Glucose 93 mg/dL (70-100) 11/08/18 11:43 Calcium 8.4 mg/dL (8.5-10.4) L 11/08/18 11:40 POC Troponin I 0.00 ng/mL (0.00-0.08) 11/08/18 11:48 Troponin I < 0.012 ng/mL (0.000-0.034) 11/08/18 11:40 Urine Color PALE YELLOW 11/08/18 12:15 Urine Appearance CLEAR 11/08/18 12:15 Urine pH 6.0 (5.0-7.5) 11/08/18 12:15 Ur Specific [place] 1.006 (1.002-1.030) 11/08/18 12:15 Urine Protein NEGATIVE (NEGATIVE) 11/08/18 12:15 Urine Ketones NEGATIVE (NEGATIVE) 11/08/18 12:15 Urine Blood NEGATIVE (NEGATIVE) 11/08/18 12:15 Urine Nitrate NEGATIVE (NEGATIVE) 11/08/18 12:15 Urine Bilirubin NEGATIVE (NEGATIVE) 11/08/18 12:15 Urine Urobilinogen NEGATIVE EU (0.2-1.0) 11/08/18 12:15 Ur Leukocyte Esterase NEGATIVE (NEGATIVE) 11/08/18 12:15 Urine RBC NONE SEEN /hpf (0-3) 11/08/18 12:15 Urine WBC 1-3 /hpf (0-3) 11/08/18 12:15 Ur Epithelial Cells TRACE /lpf (NONE-1+) 11/08/18 12:15 Urine Mucus TRACE /lpf (NONE-1+) 11/08/18 12:15 Urine Glucose NEGATIVE (NEGATIVE) 11/08/18 12:15 Patient ABO/Rh A POSITIVE 11/08/18 12:55 Antibody Screen NEGATIVE 11/08/18 12:55 Crossmatch IS Only See Detail 11/08/18 12:55 Assessment & Plan Assessment: I have seen the patient, reviewed the chart and labs and agree with Talia Griffin in her assessment and plan. GI bleed (Acute) Syncope (Acute)
[2018-11-08] MEDS ORDERED: PEG 3350/NA SULF,BICARB,CL/KCL (GAVILYTE-G) 4000 ML BTL PO ONE (17:44)
--- NOTE | 2018-11-08 18:20 | GCON ---
[f rep st] CONSULTATION GI INPATIENT CONSULTATION DATE OF CONSULTATION: 11/08/2018 REFERRING PHYSICIAN: Corrine Griffin MD I was kindly requested to see the patient by Dr. Corrine Griffin in consultation for a chief complaint of lower gastrointestinal bleeding. She is a 77-year-old white female who has had a fair amount of bright red blood in the toilet water for the last few weeks. Today, she had syncope and was admitted to the hospital. The patient has Alzheimer's, so difficult to get a complete history. Her last colonoscopy was in [address] Matt for a personal history of colon polyps. Then, she received 200 mcg of fentanyl and 5 mg of Versed. Some small hyperplastic polyps were removed, but otherwise, the procedure was normal including no mention of diverticula, hemorrhoids, etc. Over the last year, she has had occasional bright red blood per rectum but not as much as the last several weeks. She uses ibuprofen only infrequently for minor pain. PAST MEDICAL HISTORY: 1. As above. 2. Osteopenia. 3. Depression. 4. Anxiety. 5. Bipolar. 6. PTSD. 7. Status post appendectomy. 8. Status post spinal surgery. Otherwise noncontributory. OUTPATIENT MEDICATIONS: Include Seroquel, donepezil, estazolam, ranitidine 150 mg daily, memantine, Vayacog, and Wellbutrin. ALLERGIES: Include dexamethasone, sulfa, diclofenac, penicillin, cephalexin, and steroids which gave her a manic episode. INPATIENT MEDICATIONS: Include pantoprazole 40 mg IV twice a day and IV fluids. SOCIAL HISTORY: She is to her , . FAMILY HISTORY: Negative for similar bleeding. REVIEW OF SYSTEMS: Positive pertinent review of systems as per my HPI. Otherwise, complete review of systems is negative. PHYSICAL EXAM: CONSTITUTIONAL: Nontoxic. VITAL SIGNS: Stable. SKIN: Warm, dry. EYES: Pupils equal, round, and reactive to light and accommodation. EARS , NOSE, MOUTH, AND THROAT: Oropharynx without masses, moist mucosa. CARDIOVASCULAR: Normal S2, normal PMI. RESPIRATORY: Lungs clear to auscultation and percussion anteriorly. GASTROINTESTINAL: Soft, nontender. NEUROLOGIC: Consistent with her Alzheimer's. Cranial nerves grossly intact. PSYCHIATRIC: Orientation and insight to person only. NEUROLOGIC: Grossly nonfocal, otherwise consistent with her Alzheimer's. LABORATORIES: Include hematocrit of 26.9%; her baseline is 37.5%. Normal platelet count. Normal BMP, urinalysis. ASSESSMENT: Hematochezia over the last year, but worse over the last several weeks, with anemia and syncope today. Suspect a colonic source. In turn, certainly, colon cancer is quite possible with her last colonoscopy being 7 years ago. Arteriovenous malformation, colon polyps, colitis, very large internal hemorrhoids, et cetera, are also possible. PLAN: 1. I discussed the above with her . He wishes to proceed with colonoscopy to try and get an answer, possible treatment, help with future prognosis, etc. We will prep the patient tonight and proceed with this tomorrow. Certainly, with her Alzheimer's, syncope, age, etc., she is at high risk for this procedure. However, suspect the benefits outweigh the risks and suspect she will do well. 2. We will check her coags. 3. Serial hematocrits, transfusion of blood as needed. 4. I do not suspect an upper source, so she does not need aggressive PPI therapy. We will change her IV pantoprazole twice a day to just once a day orally for prophylaxis, while here in the hospital. Thank you for allowing me to help in the management of this patient. /[id number]/MODL MTDD
[2018-11-08] MEDS ORDERED: LORazepam 2 MG/ML INJ IVP PRN (18:43)
[2018-11-08] MEDS: MEMANTINE HCL 5 MG TAB PO SCH (21:12)
[2018-11-08] MEDS: QUEtiapine FUMARATE 300 MG TAB PO SCH (21:12)
[2018-11-08] MEDS: ESTAZOLAM 2 MG PO SCH (22:20)
[2018-11-09 05:07] LABS: INR 1.07 (0.83-1.16); PROTIME(PATIENT) 13.5 SEC (12.0-15.0)
[2018-11-09] MEDS: buPROPion XL 150 MG TAB PO SCH (09:15)
[2018-11-09] MEDS: CHOLECALCIFEROL VIT D3 1,000 UNITS TAB PO SCH (09:16)
[2018-11-09] MEDS: PANTOPRAZOLE SODIUM 40 MG TAB PO SCH (09:16)
[2018-11-09] MEDS: DONEPEZIL HCL 5 MG TAB PO SCH (09:16)
[2018-11-09] MEDS ORDERED: NALOXONE HCL 0.4 MG/ML INJ IVP PRN (11:14)
[2018-11-09] MEDS ORDERED: fentaNYL 100 MCG/2 ML INJ IVP PRN (11:14)
[2018-11-09] MEDS ORDERED: ONDANSETRON 4 MG/2 ML VIAL IVP PRN (11:14)
--- NOTE | 2018-11-09 11:14 | PDANEPAE ---
ANE History of Present Illness Colonoscopy ANE Past Medical History - Pulmonary History Hx Oxygen in Use at Home: No Hx Sleep Apnea: No Sleep Apnea Screening Result - Last Documented: Negative - Endocrine History Hx Diabetes: No - Chronic Pain History Chronic Pain: No ANE Review of Systems Review of Systems: ANE Patient History - Allergies Allergies/Adverse Reactions: dexamethasone [From Decadron] Allergy (Severe, Verified 05/10/12 13:43) MANIC EPISODE dexamethasone sod phosphate [From Decadron] Allergy (Severe, Verified 05/10/12 13:43) MANIC EPISODE Sulfa (Sulfonamide Antibiotics) Allergy (Severe, Verified 05/10/12 13:44) FACIAL SWELLING-TONGUE SWELLING diclofenac sodium [From Pennsaid] Allergy (Intermediate, Verified 05/10/12 13:43 ) Hives Penicillins Allergy (Intermediate, Verified 05/10/12 13:44) HIVES-FACIALSWELLING cephalexin Allergy (Unknown, Verified 05/10/12 13:46) STEROIDS Allergy (Uncoded 05/10/12 13:45) MANIC EPISODE - Home Medications Home Medications: QUEtiapine FUMARATE [Seroquel 300mg (*)] 300 mg PO HS 02/25/12 [Last Taken 11/07] Donepezil HCl 20 mg PO DAILY 11/09/15 [Last Taken 11/08/18] Estazolam 2 mg PO HS 11/09/15 [Last Taken 11/07/18] Herbals/Supplements -Info Only 1 ea PO DAILY 11/09/15 [Last Taken 11/09/15 09:00 ] Ranitidine HCl [Zantac] 150 mg PO DAILY 04/16/16 [Last Taken 11/08/18] Cholecalciferol Vit D3 [Vitamin D3 (*)] 1,000 units PO DAILY 11/08/18 [Last Taken 11/08/18] Docusate Sodium [Colace 100 MG (*)] 100 mg PO BID@11/08/18 [Last Taken 12:00] Glucosamine/Chondroitin [Glucosamine/Chondroitin (*)] 1 each PO TIDMEAL [Last Taken 11/08/18 09:00] Memantine HCl [Namenda 10 mg] 20 mg PO HS 11/08/18 [Last Taken 11/07/18] Vayacog 1 cap PO BID@,11/08/18 [Last Taken 11/07/18 18:00] buPROPion XL [Wellbutrin Xl] 300 mg PO DAILY 11/08/18 [Last Taken 11/08/18] - NPO status NPO Since - Liquids (Date): 11/09/18 NPO Since - Liquids (Time): 00:00 NPO Since - Solids (Date): 11/09/18 NPO Since - Solids (Time): 00:00 - Smoking Hx Smoking Status: Never smoked - Alcohol Use Alcohol Use: None ANE Labs/Vital Signs - Labs Result Diagrams: 11/09/18 04:39 11/09/18 04:39 - Vital Signs Blood Pressure: 160/98 Heart Rate: 78 Respiratory Rate: 16 O2 Sat (%): 96 Height: 162.56 cm Weight: 63.503 kg ANE Physical Exam - Airway Neck exam: FROM Mallampati Score: Class 2 Mouth exam: normal dental/mouth exam - Pulmonary Pulmonary: clear to auscultation - Cardiovascular Cardiovascular: regular rate and rhythym - ASA Status ASA Status: III ANE Anesthesia Plan Anesthesia Plan: GA with mask
[2018-11-09] MEDS ORDERED: PROPOFOL/EMULSION 500 MG/50 ML BOTTLE IV ONE (11:16)
[2018-11-09] MEDS ORDERED: LIDOCAINE 2% 2 ML INJ ONE ×2 (11:16)
--- NOTE | 2018-11-09 11:40 | POSTANESTH ---
Post Anesthetic Evaluation Cardiovascular Status: Normal, Stable Respiratory Status: Normal, Stable Level of Consciousness/Mental Status: Mildly Sleepy, Arousable Pain Control: Adequate, Prn Tx Ordered Nausea/Vomiting Control: Adequate, Prn Tx Ordered
--- NOTE | 2018-11-09 12:11 | GIREPORT ---
[facility] Surgical Services - Endoscopy Department Patient Name: Manisha Carrera Procedure Date: 11/09/2018 10:59 AM Patient Type: Inpatient Attending MD/ ER Physician: Scott Frias MD Procedure: Colonoscopy Indications: Hematochezia. Hct 35% after trf, and now down to 32.5%. Nl coags. Only drink 1/4 of her prep. Providers: Scott Frias MD, FACG Referring MD: Toi Perdomo MD; [facility] Hospitalist service Medicines: Propofol per Anesthesia Complications: No immediate complications. Description of Procedure: After obtaining informed consent, the scope was passed under direct vis ion. Throughout the procedure, the patient's blood pressure, pulse, and oxyg en saturations were monitored continuously. The Colonoscope was introduced through the anus and advanced to the sigmoid. The colonoscopy was perfo rmed without difficulty. Prep was poor. Findings: A non-obstructing large mass was found in the rectum. The mass was part ially circumferential (involving one-half of the lumen circumference). The ma ss measured eight cm in length, and was only 2 cm above the anal verge. Oo zing was present. Biopsies were taken with a cold forceps for histology. Estimated Blood Loss: none. Post Op Diagnosis: - Malignant tumor in the rectum, with oozing. Biopsied. Almost certainl y represents a rectal adenocarcinoma. Recommendation: - Await pathology results, but suspect will show the above. - feed - Hospitalist service informed. I will discuss with the . Furthe r management, as per the hospitalist service, but suspect he may choose comfort care. I will sign off; I will f/u on the bx results, but suspect will show adenocarcinoma. Else, please call if we can be of further help [phone] Thank you for allowing me to help in the management of this patient. Attending Participation: I personally performed the entire procedure. Altagracia Chavez MD Scott Frias MD 11/09/2018 12:10:46 PM This report has been signed electronicallyPeter MD Altagracia Number of Addenda: 0 Note Initiated On: 11/09/2018 10:59 AM [email or web address]
--- NOTE | 2018-11-09 14:03 | HOSPPROG ---
Hospitalist Progress Note Assessment/Plan: 77 year old female with advanced dementia admitted with LGIB, found to have rectal cancer. #Syncopal episode d/t suspected hypovolemia by chronic blood loss -Head CT w/o contrast unremarkable. -Asymptomatic currently -Gentle IVF x 1 bag -was on telemetry. no issues overnight, fine to dc. #LGIB- underwent colonoscopy today. I discussed the results with gastroenterology who noted that there was an 8cm oozing rectal mass that almost certainly is adenocarcinoma of the rectum. -monitor H/H -transfuse for H/H below 7/21 -Need to discuss with how he wishes to proceed. #Rectal Mass- noted on colonoscopy today. Biopsy taken, likely adenocarcinoma. Given patients advanced dementia would likely advocate for comfort care approach , but will need to discuss with patients KOREY, her -discuss with -await pathology report #Alzheimer -Baseline cognitive function is A&Ox1 -Cont home medications of donepezil and namenda -PT and OT to evaluate and treat # Psychiatric disorders (depression, anxiety, PTSD, bipolar) -Cont home medications of wellbutrin, estazolam and seroquel Diet: resume diet VTE- scds, no heparin Cor- DNR Dispo- change to inpatient for further workup and management of bleeding rectal mass. Subjective: no complaints. appears comfortable. Objective: Vital Signs Temp Pulse Resp BP Pulse Ox 36.6 C 82 16 161/77 H 96 11/09/18 13:49 11/09/18 13:49 11/09/18 13:49 11/09/18 13:49 11/09/18 13:49 Laboratory Results 11/09/18 04:39 11/09/18 04:39 11/08/18 11/09/18 11/10/18 05:59 05:59 05:59 Intake Total 240 1365 Output Total 1 Balance 239 1365 PT 13.5 SEC (12.0-15.0) 11/09/18 04:39 INR 1.07 (0.83-1.16) 11/09/18 04:39 - Physical Exam Constitutional: no apparent distress Eyes: PERRL Ears, Nose, Mouth, Throat: moist mucous membranes Cardiovascular: regular rate and rhythym Respiratory: no respiratory distress Gastrointestinal: normoactive bowel sounds, soft, non-tender abdomen Genitourinary: no bladder fullness Skin: warm Musculoskeletal: generalized weakness Neurologic: other (oriented to self. ) Psychiatric: not anxious Lymph, Heme, Immunologic: no cervical LAD ICD10 Worksheet Patient Problems: Problems Problem Status Onset GI bleed Acute Syncope Acute Altered mental state Acute Behavioral disorder Acute Dementia Acute Expressive aphasia Acute Gait disturbance Acute Headache Acute Viral gastroenteritis Acute
--- NOTE | 2018-11-09 15:54 | ASMTCMCOM ---
CM Note CM Note Notes: Spoke with in the room and with hospitalist. Pt admitted for GI bleed in the setting of advanced dementia. Pt still lives at home with who has caregivers on an as needed basis through [facility], usually 2 days a week. Pt has begun to wander (at least once) and is in conversation with [facility] in [place]. Pt is AOx1. Colonoscopy today revealed rectal cancer. Hospitalist discussed with pt's and placed an order for palliative care. [facility] Palliative team notified and they were swamped today so asked CM to provide palliative information, which was done. to community choice of agencies to CM tomorrow. Pt likely to dc tomorrow. CM to follow. D/C Plan: Home with and private duty caregivers and palliative care. Date Signed: 11/09/2018 03:53 PM Electronically Signed By:Dinora Chand
[2018-11-09] MEDS: QUEtiapine FUMARATE 300 MG TAB PO SCH (20:28)
[2018-11-09] MEDS: ESTAZOLAM 2 MG PO SCH (20:28)
[2018-11-09] MEDS: MEMANTINE HCL 5 MG TAB PO SCH (20:28)
[2018-11-10 05:11] LABS: PLATELET COUNT 274 10^3/uL (150-400)
[2018-11-10 08:41] VITALS: BP 141/88
[2018-11-10] MEDS: CHOLECALCIFEROL VIT D3 1,000 UNITS TAB PO SCH (09:09)
[2018-11-10] MEDS: buPROPion XL 150 MG TAB PO SCH (09:09)
[2018-11-10] MEDS: PANTOPRAZOLE SODIUM 40 MG TAB PO SCH (09:09)
[2018-11-10] MEDS: DONEPEZIL HCL 5 MG TAB PO SCH (09:09)
--- NOTE | 2018-11-10 14:13 | HOSPPROG ---
Hospitalist Progress Note Assessment/Plan: 77 year old female with advanced dementia admitted with LGIB, found to have rectal cancer. #Syncopal episode d/t suspected hypovolemia by chronic blood loss -H/H improved after 2 units PRBCs -no further bleed -monitor H/H #LGIB- underwent colonoscopy showing 8cm friable rectal mass. I discussed with GI who feels that given her age and comorbidities they recommend comfort approach. is on board. -monitor H/H -transfuse for H/H below 7/21 #Rectal Mass- noted on colonoscopy today. Biopsy taken, likely adenocarcinoma. Given patients advanced dementia would likely advocate for comfort care approach , but will need to discuss with patients KOREY, her -palliative care today, likely proceed with hospice. -await pathology report #Alzheimer -Baseline cognitive function is A&Ox1 -Cont home medications of donepezil and namenda -PT and OT to evaluate and treat # Psychiatric disorders (depression, anxiety, PTSD, bipolar) -Cont home medications of wellbutrin, estazolam and seroquel Diet: resume diet VTE- scds, no heparin Cor- DNR Dispo- remain inpatient. Subjective: feels fine today. no pain dizziness or complaints. Objective: Vital Signs Temp Pulse Resp BP Pulse Ox 36.6 C 95 16 141/88 H 93 11/10/18 08:00 11/10/18 08:00 11/10/18 08:00 11/10/18 08:00 11/10/18 08:00 Laboratory Results 11/10/18 04:33 11/09/18 04:39 11/09/18 11/10/18 11/11/18 05:59 05:59 05:59 Intake Total 240 1365 Output Total 1 Balance 239 1365 PT 13.5 SEC (12.0-15.0) 11/09/18 04:39 INR 1.07 (0.83-1.16) 11/09/18 04:39 - Physical Exam Constitutional: no apparent distress, appears nourished, not in pain Eyes: PERRL, anicteric sclera, EOMI Ears, Nose, Mouth, Throat: moist mucous membranes, hearing normal, ears appear normal, no oral mucosal ulcers Cardiovascular: regular rate and rhythym, no murmur, rub, or gallop Respiratory: no respiratory distress, no rales or rhonchi, clear to auscultation Gastrointestinal: normoactive bowel sounds, soft, non-tender abdomen, no palpable masses Genitourinary: no bladder fullness, no bladder tenderness, no renal bruits Skin: no rashes or abrasions, no fluctuance, no induration Musculoskeletal: full muscle strength, no muscle tenderness, normal joint ROM Neurologic: sensation intact bilaterally Psychiatric: interacting appropriately, not anxious, not encephalopathic, poor insight, poor judgement, poor memory Lymph, Heme, Immunologic: no cervical LAD, no supraclavicular LAD ICD10 Worksheet Patient Problems: Problems Problem Status Onset GI bleed Acute Syncope Acute Altered mental state Acute Behavioral disorder Acute Dementia Acute Expressive aphasia Acute Gait disturbance Acute Headache Acute Viral gastroenteritis Acute
--- NOTE | 2018-11-10 15:14 | PDIAF ---
- Diagnosis Diagnosis: rectal cancer Code Status: Do Not Resuscitate - Medication Management Discharge Medications: electronically signed and located in the Home Medication List. - Orders Services needed: Home Jail Care Face to Face: I certify that this patient was under my care and that I had the required [id number] encounter meeting the encounter requirements on the discharge day. My findings support the fact that the patient is homebound as defined in Home Care Face to Face Continued: CMS Chapter 7 Medicare Benefits Manual 30.1.1 , The condition of the patient is such that there exists a normal inability to leave home and consequently, leaving home would require a considerable and taxing effort. Isolation Type: None Diet Recommendation: no restrictions on diet Diet Texture: Regular Texture Diet - Follow Up Care Current Providers and Referrals: Patient,NotPresent [Primary Care Provider] - As per Instructions
--- NOTE | 2018-11-10 15:37 | ASMTLACE ---
JIMENAE Length of stay for Answers: 2 days current admission Acuity / Level of Answers: No Care: Did the patient have an inpatient admission? Comorbidities - select Answers: Dementia all that apply # of Emergency department Answers: 1-2 visits in the last 6 months Social determinants Answers: Mental health diagnosis (anxiety, depression, pers onality disorders, etc.) Score: 9 Date Signed: 11/10/2018 03:37 PM Electronically Signed By:Anita Mccloud RN
--- NOTE | 2018-11-10 15:39 | ASMTCMCOM ---
CM Note CM Note Notes: D/w , pt will dc home w/ current home care and support from . Referral sent to [facility] and they can accept. DC Plan: Home + [facility] Date Signed: 11/10/2018 03:38 PM Electronically Signed By:Anita Mccloud RN
--- NOTE | 2018-11-10 15:41 | ASMTDCNOTE ---
Case Management Discharge Discharge Order Complete? Answers: Yes Patient to Obtain Answers: via Family Medications Transportation Arranged Answers: Family/Friends Faxed Final Orders Answers: Yes Family Notified Answers: Yes Discharge Comments Notes: Pt will dc home with [facility]. Date Signed: 11/10/2018 03:40 PM Electronically Signed By:Anita Mccloud RN
--- NOTE | 2018-11-10 17:08 | PDDCSUM ---
Discharge Summary Discharge Summary: Discharge diagnosis Rectal cancer Lower GI bleed Advanced dementia Patient is a 77-year-old female with past medical history of advanced dementia who was admitted with hypotension and bright red blood per rectum. She was mildly anemic but symptomatic and so she was transfused 2 units of packed red blood cells in the emergency room. Gastroenterology was consulted and planned for a colonoscopy. The patient was prepped and taken to colonoscopy. Upon examination and 8 cm friable rectal mass was found. Biopsy was taken and sent to pathology. Gastroenterology felt that this almost certainly represented a rectal adenocarcinoma. 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 The decision was made for the patient to move forward with a comfort approach rather than being aggressive with treatment for the mass. The patient's hemoglobin and hematocrit improved and she had no further bleeding. Palliative Care was consulted and the patient was connected with [facility]. The patient was discharged home with home health and further evaluation for home hospice. Disposition Home with home health and evaluation for home hospice I spent over 30 min on the discharge of this patient
--- NOTE | 2018-11-11 09:47 | ASDISCHSUM ---
Discharge Information Plan Status:Outpatient Palliative Care Medically Cleared to Leave: Discharge Date:11/10/2018 05:21 PM D/C Disposition:Other (Not listed) ADT D/C Disposition:Home, Routine, Self-Care Projected Discharge Date:11/11/2018 11:00 AM Transportation at D/C:Family Discharge Delay Reason: Follow-Up Date:11/11/2018 11:00 AM Discharge Slot: Final Diagnosis: Placement Information Referral Type:Palliative Care Referral ID:[id number] Provider Name:[facility] Address 1:[address] Phone Number: Address 2: Fax Number: City:[place] Selection Factors: State:[place] Patient Contact Information Contact Name:REMY Relationship: Address:[address] [place] [address] City:[facility] Phone: State/Zip Code:[place] [address] Email: Financial Information Financial Class:Medicare Primary Plan Desc:MEDICARE INPATIENT Primary Plan Number:[id number] Secondary Plan Desc:SANAZ INDEMNI Secondary Plan Number:[id number] Assessment Information LACE LACE Length of stay for Answers: 2 days current admission Acuity / Level of Answers: No Care: Did the patient have an inpatient admission? Comorbidities - select Answers: Dementia all that apply # of Emergency department Answers: 1-2 visits in the last 6 months Social determinants Answers: Mental health diagnosis (anxiety, depression, pers onality disorders, etc.) Score: 9 Date Signed: 11/10/2018 03:37 PM Electronically Signed By:Anita Mccloud RN [facility] CM Progress Note CM Note CM Note Notes: Spoke with in the room and with hospitalist. Pt admitted for GI bleed in the setting of advanced dementia. Pt still lives at home with who has caregivers on an as needed basis through [facility], usually 2 days a week. Pt has begun to wander (at least once) and is in conversation with [facility] in [place]. Pt is AOx1. Colonoscopy today revealed rectal cancer. Hospitalist discussed with pt's and placed an order for palliative care. [facility] Palliative team notified and they were swamped today so asked CM to provide palliative information, which was done. to community choice of agencies to CM tomorrow. Pt likely to dc tomorrow. CM to follow. D/C Plan: Home with and private duty caregivers and palliative care. Date Signed: 11/09/2018 03:53 PM Electronically Signed By:Dinora Chand [facility] CM Progress Note CM Note CM Note Notes: D/w , pt will dc home w/ current home care and support from . Referral sent to [facility] and they can accept. DC Plan: Home + [facility] Date Signed: 11/10/2018 03:38 PM Electronically Signed By:Anita Mccloud RN Case Management Discharge Plan Note Case Management Discharge Discharge Order Complete? Answers: Yes Patient to Obtain Answers: via Family Medications Transportation Arranged Answers: Family/Friends Faxed Final Orders Answers: Yes Family Notified Answers: Yes Discharge Comments Notes: Pt will dc home with [facility]. Date Signed: 11/10/2018 03:40 PM Electronically Signed By:Anita Mccloud RN Intervention Information Intervention Type:*GUTIERREZ-Signed Date of Service:11/09/2018 02:14 PM Patient Type:Observation Staff Member:Laurie Umanzor Hours: Discipline: Severity: Comment:
--- NOTE | 2018-11-11 17:03 | PDMN ---
Medical Necessity Medical necessity: Change to IP, as of 11/10/18, per MD & MCG [id number]; los >2 mn for ongoing management of lower GI bleed w/syncopal episode; rectal cancer noted on colonoscopy; requiring further monitoring, follow-up labs & Palliative Care consult; comorbid advanced age, Alzheimer's
== END 2018-11-10 17:21 | disposition home or self-care (01) | DRG 375 ==
LOC: EDUNIT# → EDBD → F3E 14:50 → OBSVTOIN 11-10 14:40
PROVIDERS: ADMIT Internal Medicine; ATTEND Internal Medicine
PROC: 30233N1 Transfusion of Nonautologous Red Blood Cells into Peripheral Vein, Percutaneous Approach (ICD-10-PCS; 2018-11-09)
PROC: 0DBP8ZX Excision of Rectum, Via Natural or Artificial Opening Endoscopic, Diagnostic (ICD-10-PCS; principal; 2018-11-09 11:30)
DX: C20 Malignant neoplasm of rectum (principal); K92.2 Gastrointestinal hemorrhage, unspecified; G30.9 Alzheimer's disease, unspecified; F02.80 Dementia in other diseases classified elsewhere, unspecified severity, without behavioral disturbance, psychotic disturbance, mood disturbance, and anxiety; D64.9 Anemia, unspecified; F41.8 Other specified anxiety disorders; F43.10 Post-traumatic stress disorder, unspecified; F31.9 Bipolar disorder, unspecified; Z98.1 Arthrodesis status
CPT/HCPCS: 82435-PO; 82565-PO; 82947-PO; 84132-PO; 84295-PO; 84484-ER; 84520-PO; 85014-ER; 96374; 97161-GP; 97166-GO; G0378; J2060; J2704; P9016